=== PATIENT | male | born 1985 | race Caucasian/White ===

== ENCOUNTER 2017-07-16 15:57 | Emergency (ER) | payer BC ==
[~2017-07-16] VITALS: Ht 177.8 cm; Wt 68.2 kg
[~2017-07-16 15:57] MED LIST: NO HOME MEDICATIONS
[2017-07-16 15:58] VITALS: TEMP 99
[2017-07-16 16:33] LABS: BASO % 0.5 % (0.0-2.0); EOS % 0.3 % (0-4.0); GRAN # 2.8 (1.4-6.5); GRAN % 74.9 % (42.2-75.2); HEMATOCRIT 42.8 % (42.0-52.0); LYMPH # 0.4 (1.2-3.4); LYMPH % 10.8 % (20.0-51.0); MEAN CELL VOLUME 86 fl (80.0-100.0); MEAN CORPUSCULAR HEMOGLOBIN 30 pg (27.0-31.0); MEAN CORPUSCULAR HGB CONC 35 g/dl (33.0-37.0); MEAN PLATELET VOLUME 9.9 fl (7.4-10.4); MONO # 0.5 (0.1-0.6); MONO % 13.2 % (1.7-9.3); RED BLOOD COUNT 4.97 M/mm3 (4.20-5.60); REDCELL DISTRIBUTION WIDTH-CV 12.1 % (11.5-14.5)
[2017-07-16 16:44] LABS: ALANINE AMINOTRANSFERASE 186 U/L (21-72); ALBUMIN 4.7 gm/dL (3.5-5.0); ALKALINE PHOSPHATASE 63 U/L (50-136); ANION GAP 14 mmol/L (7-16); AST,SGOT 183 U/L (15-37); BILIRUBIN,TOTAL 1.2 mg/dL (0.0-1.0); BLOOD UREA NITROGEN 11 mg/dL (9-20); CARBON DIOXIDE 29 mmol/L (22-30); CHLORIDE 94 mmol/L (98-107); CREATININE, serum 0.75 mg/dL (0.66-1.25); GLUCOSE 123 mg/dL (74-106); PLATELET COUNT 79 K/mm3 (130-400); POTASSIUM 4.1 mmol/L (3.4-5.0); SODIUM 137 mmol/L (137-145); TOTAL PROTEIN 9.3 gm/dL (6.4-8.2)
[2017-07-16 16:45] LABS: ALCOHOL(ethanol),MEDICAL < 10 mg/dL
[2017-07-16 17:53] VITALS: BP 123/94; PULSE 106
== END 2017-07-16 17:54 | disposition home or self-care (01) ==
LOC: COL.ER 15:57
PROVIDERS: Emergency Medicine
DX: S80.02XA Contusion of left knee, initial encounter (principal); F10.239 Alcohol dependence with withdrawal, unspecified; X58.XXXA Exposure to other specified factors, initial encounter
CPT/HCPCS: J2060; J7030; L1846